=== PATIENT | female | born 1955 | race Caucasian/White ===

== ENCOUNTER 2016-11-15 16:54 | Emergency (ER) | payer BC ==
[~2016-11-15] VITALS: Ht 157.5 cm; Wt 50.0 kg
[~2016-11-15 16:54] MED LIST: ASPI81TA3 PO
[2016-11-15 17:13] VITALS: Ht 157.5 cm; Wt 50.0 kg
--- NOTE | 2016-11-15 17:39 | EN ---
Date/Time of Note Date/Time of Note DATE: 11/15/16 TIME: 17:38 ER Progress Note Saw patient in flu track, however patient has wheezing in all lung francis and is complaining of chest pain and pressure. Given that she has a past medical history of DM, and hypertension she will be sent to ER 2 for EKG and chest xray. DAVY NINA Nov 15, 2016 17:39
[2016-11-15] MEDS ORDERED: AZIT250T94 PO (18:28)
[2016-11-15] MEDS ORDERED: BENZ100C70 PO (18:29)
--- NOTE | 2016-11-15 18:31 | ERD ---
ER Documentation Chief Complaint Date/Time DATE: 11/15/16 TIME: 18:30 Chief Complaint Complains of cough, sore throat HPI Patient is a 61 year old female with a past medical history of diabetes, hypertension, hyperlipidemia who presents emergency department with numerous concerns including a dry cough, body aches, headache and sore throat as one week. Patient states that her cough is dry in nature occasional white sputum production.. Patient also reports body aches. Patient also states that she has some throat pain. Patient denies any Swallowing. Patient also reports clear rhinorrhea. She does report some chest pain and back pain when coughing only. She denies any chest pain at rest. Denies any radiation of pain. Patient denies any arm pain, shoulder pain, jaw pain, diaphoresis, loss of consciousness. Patient denies any abdominal pain, nausea, vomiting. Patient states been taking DayQuil and NyQuil does intermittently alleviate her symptoms are they have persisted. No recent travel. Patient denies receiving the flu vaccination here. ROS All systems reviewed and are negative except as per history of present illness. Medications Home Meds Active Scripts Ibuprofen* (Ibuprofen*) 600 Mg Tablet, 600 MG PO Q6, #30 TAB Prov:MEHUL CHAND PA-C 11/15/16 Albuterol Sulfate* (Proair HFA*) 8.5 Gm Hfa.aer.ad, 2 PUFF INH Q4H Y for WHEEZING AND SOB, #1 INHALER Prov:MEHUL CHAND PA-C 11/15/16 Benzonatate* (Tessalon Perle*) 100 Mg Capsule, 100 MG PO Q8H Y for COUGH, #20 CAP Prov:MEHUL CHAND PA-C 11/15/16 Azithromycin* (Zithromax*) 250 Mg Tablet, 250 MG PO .ZPACK DIRECTED, #6 TAB TAKE 500 MG (2 TABS) THE FIRST DAY THEN 250 MG (1 TAB) DAYS 2-5 Prov:MEHUL CHAND PA-C 11/15/16 Aspirin* (Aspirin* Chew) 81 Mg Tab.chew, 162 MG PO DAILY for 30 Days, #30 TAB.CHEW Prov:Eileen Reynolds PA-C 08/01/16 Allergies Allergies: Coded Allergies: No Known Allergy (Unverified , 08/01/16) PMhx/Soc History of Surgery: No Hx Neurological Disorder: No Hx Respiratory Disorders: No Hx Cardiac Disorders: Yes (high cholesterol, high blood pressure) Hx Psychiatric Problems: No Hx Miscellaneous Medical Probl: Yes (dm) Hx Alcohol Use: No Hx Substance Use: No Hx Tobacco Use: No FmHx Family History: No diabetes Physical Exam Vitals Vital Signs Date Time Temp Pulse Resp B/P Pulse Ox O2 Delivery O2 Flow Rate FiO2 11/15/16 19:24 98.6 79 19 134/65 100 Room Air 11/15/16 17:13 98.6 92 20 178/76 96 Physical Exam GENERAL: Well-developed, well-nourished female. Appears in no acute respiratory distress. Appears to be in no respiratory distress, no nasal flaring, no grunting and no abdominal retractions. HEAD: Normocephalic, atraumatic. No deformities or ecchymosis. EYE: Pupils equal, round, and reactive to light. EOMs intact. No conjunctival erythema. No scleral icterus. No eye discharge. ENT: External ear without any masses or tenderness. Auditory canals clear bilaterally. TM visualized bilaterally, non-erythematous, non-bulging. Nasal mucosa pink with no discharge. Oropharynx is pink without any tonsillar erythema or exudates. No uvula deviation. No kissing tonsils. NECK: Supple. Normal range of motion of the neck. No meningismus. LUNG: Bilateral coarse sounds noted bilaterally. Chest wall tender to palpation to mid sternum. HEART: Regular rate and rhythm. No murmurs, rubs or gallops. ABDOMEN: Soft, nontender, and nondistended. Positive bowel sounds in all four quadrants. No rebound tenderness, no guarding. (-) McBurney's point tenderness. No CVA tenderness. BACK: No midline tenderness. EXTREMITIES: Equal pulses bilaterally. No peripheral clubbing, cyanosis or edema. No unilateral leg swelling. NEUROLOGIC: Alert and oriented to person, place and time. Moving all four extremities. 5/5 strength in all extremities. Normal speech. Steady gait. SKIN: Normal color. Warm and dry. No rashes or lesions. Procedures/MDM ED COURSE: The patient was stable throughout ED course. I kept the patient and/or family informed of laboratory and diagnostic imaging results throughout the ED course. EKG: Read by Dr. Thompson, attending physician. EKG shows normal sinus rhythm at a rate of 76 bpm No arrhythmias, acute ST elevations or T wave changes were noted. DIAGNOSTIC IMAGING: Read by radiologist. DIAGNOSTIC IMAGING REPORT Patient: JANET GAMA : 1955 Age: 61 Sex: F MR #: [id number] DOS: 11/15/16 0000 Ordering MD: DAVY NINA. PA-C Location: [facility] Room/Bed: PROCEDURE: XR Chest. CLINICAL INDICATION: Cough and fever TECHNIQUE: A single PA view of the chest was obtained. COMPARISON: None FINDINGS: The cardiomediastinal silhouette is within normal limits. The lungs and pleural spaces are clear. The soft tissues and osseous structures are unremarkable. IMPRESSION: No acute cardiopulmonary disease. RPTAT: HPNM Physician Codie Date Time Electronically viewed and signed by Physician Codie on 11/15/2016 18 :39 / CC: DAVY NINA MEDICAL DECISION MAKING: This is a 61-year-old female who presents with numerous concerns including cough , sore throat, body aches 1 week. Vital signs were reviewed. Patient was afebrile. Patient was not hypoxic. ENT exam was normal. Lung exam revealed coarse breath sounds. Chest x-ray was obtained which showed no acute cardiopulmonary disease. EKG was within normal limits. Given these findings, the patients presentation is most consistent with acute bronchitis versus influenza. I have a much lower clinical concern for pneumonia, meningitis, sinusitis, otitis externa, acute otitis media, strep pharyngitis, epiglottitis or peritonsillar abscess. Low suspicion for acute coronary syndrome, pneumothorax, pericarditis, pleural effusion. PRESCRIPTIONS: Z-anh, Tessalon Perles, albuterol inhaler DISCHARGE: At this time, patient is stable for discharge and outpatient management. Supportive therapies such as OTC throat lozenges, salt water gurgles, popsicles and jello discussed. I have instructed the patient to follow-up with his/her primary care physician in 1-2 days. I have instructed the patient to promptly return to the ER for any new or worsening symptoms including increased pain, swelling, fever, nausea, vomiting, weakness or difficulty breathing. The patient and/or family expressed understanding of and agreement with this plan. All questions were answered. Home care instructions were provided. Patients blood pressure was elevated (>120/80) but appears stable without evidence of hypertensive emergency, hypertensive urgency or end-organ failure. I had discussion with the patient about the risks of hypertension. I have advised the patient to follow up with his/her primary care physician for outpatient monitoring and treatment for hypertension in 2-3 days. I have instructed the patient to return to the ER for any new or worsening symptoms including chest pain, shortness of breath, headache, blurred vision, confusion, nausea, vomiting or LOC. Departure Diagnosis: Primary Impression: Acute bronchitis Bronchitis organism: unspecified organism Qualified Code: J20.9 - Acute bronchitis, unspecified organism Condition: Stable Patient Instructions: Acute Bronchitis Referrals: [facility] YOU HAVE RECEIVED A MEDICAL SCREENING EXAM AND THE RESULTS INDICATE THAT YOU DO NOT HAVE A CONDITION THAT REQUIRES URGENT TREATMENT IN THE EMERGENCY DEPARTMENT. FURTHER EVALUATION AND TREATMENT OF YOUR CONDITION CAN WAIT UNTIL YOU ARE SEEN IN YOUR DOCTORS OFFICE WITHIN THE NEXT 1-2 DAYS. IT IS YOUR RESPONSIBILITY TO MAKE AN APPOINTMENT FOR FOLOW-UP CARE. IF YOU HAVE A PRIMARY DOCTOR --you should call your primary doctor and schedule an appointment IF YOU DO NOT HAVE A PRIMARY DOCTOR YOU CAN CALL OUR PHYSICIAN REFERRAL HOTLINE AT IF YOU CAN NOT AFFORD TO SEE A PHYSICIAN YOU CAN CHOSE FROM THE FOLLOWING [facility] CLINICS [facility] [address] [facility] [address] [facility] [facility] [address] [facility] [address] [facility] [address] [facility]. [facility]. [address] [facility] [facility] YOU HAVE RECEIVED A MEDICAL SCREENING EXAM AND THE RESULTS INDICATE THAT YOU DO NOT HAVE A CONDITION THAT REQUIRES URGENT TREATMENT IN THE EMERGENCY DEPARTMENT. FURTHER EVALUATION AND TREATMENT OF YOUR CONDITION CAN WAIT UNTIL YOU ARE SEEN IN YOUR DOCTORS OFFICE WITHIN THE NEXT 1-2 DAYS. IT IS YOUR RESPONSIBILITY TO MAKE AN APPOINTMENT FOR FOLOW-UP CARE. IF YOU HAVE A PRIMARY DOCTOR --you should call your primary doctor and schedule and appointment IF YOU DO NOT HAVE A PRIMARY DOCTOR YOU CAN CALL OUR PHYSICIAN REFERRAL HOTLINE AT . IF YOU CAN NOT AFFORD TO SEE A PHYSICIAN YOU CAN CHOSE FROM THE FOLLOWING [facility] INSTITUTIONS: [facility] [address] [place] [address] [facility] [address] [place] [address] [facility] [address] [place] [address] Additional Instructions: Llame al doctor MAANA y leonardo jocelynn CYNTHIA PARA DENTRO DE 1-2 [place]NE.Dgale a la secretaria que nosotros le instruimos hacer esta cynthia.Avise o llame si farris condicin se empeora antes de la cynthia. Regresa aqui si peor o no mejor. MEHUL CHAND PA-C Nov 15, 2016 18:31
--- NOTE | 2016-11-15 18:40 | RADRPT ---
PROCEDURE: XR Chest. CLINICAL INDICATION: Cough and fever TECHNIQUE: A single PA view of the chest was obtained. COMPARISON: None FINDINGS: The cardiomediastinal silhouette is within normal limits. The lungs and pleural spaces are clear. The soft tissues and osseous structures are unremarkable. IMPRESSION: No acute cardiopulmonary disease. RPTAT: HPNM Physician Codie Date Time Electronically viewed and signed by Andrew Marinelli Physician on 11/15/2016 18:39 /
[2016-11-15] MEDS ORDERED: IBUP-1542 PO (18:57)
[2016-11-15] MEDS ORDERED: ALBU8.5H3 INH (18:57)
[2016-11-15 19:24] VITALS: BP 134/65; PULSE 79; RESP 19; TEMP 98.6
== END 2016-11-15 19:24 | disposition home or self-care (01) ==
LOC: FTE 16:54
DX: J20.9 Acute bronchitis, unspecified (principal); I10 Essential (primary) hypertension; E11.9 Type 2 diabetes mellitus without complications; Z79.82 Long term (current) use of aspirin
CPT/HCPCS: 71010; 93005

== ENCOUNTER → 2017-02-07 | Outpatient (CLI) | payer BC ==
[~2017-02-07] MED LIST changes: +ALBU8.5H3 INH; +APRACLONIDINE 1% 0.1 ML OPH ONE; +AZIT250T94 PO; +BENZ100C70 PO; +IBUP-1542 PO; +OPHTHALMIC IRRIG SOLUTION 120 ML ONE; +PILOCARPINE 2% 15ML OPH ONE; +PROPARACAINE 0.5% 15 ML OPH ONE
== END | disposition home or self-care (01) ==
LOC: RAD 09:55
PROVIDERS: ATTEND Ophthalmology
DX: H40.20X0 Unspecified primary angle-closure glaucoma, stage unspecified (principal)
CPT/HCPCS: 66761; Z7610

== ENCOUNTER → 2017-02-13 | Outpatient (CLI) | payer BC | END | disposition home or self-care (01) | LOC: RAD 09:31 | PROVIDERS: ATTEND Ophthalmology | DX: H40.20X0 Unspecified primary angle-closure glaucoma, stage unspecified (principal) | CPT/HCPCS: 66761; Z7610 ==